=== PATIENT | female | born 1990 | race Caucasian/White ===

== ENCOUNTER → 2021-06-26 | Outpatient (CLI) | payer OTHER | END | disposition home or self-care (01) | LOC: NST 14:30 | PROVIDERS: ATTEND Obstetrics & Gynecology Maternal & Fetal Medicine | DX: Z34.83 Encounter for supervision of other normal pregnancy, third trimester (principal) ==

== ENCOUNTER 2021-07-18 10:58 | Outpatient (CLI) | payer OTHER | END 2021-07-18 11:34 | disposition home or self-care (01) | LOC: NST 10:58 | PROVIDERS: ATTEND Obstetrics & Gynecology Maternal & Fetal Medicine | DX: Z34.83 Encounter for supervision of other normal pregnancy, third trimester (principal) ==

== ENCOUNTER 2021-07-18 12:30 | Inpatient (IN) | payer OTHER ==
[~2021-07-18] VITALS: Ht 157.5 cm; Wt 84.8 kg
[2021-07-20] MEDS ORDERED: PRENATAL TABLE1 EAC1 PO (03:39)
[2021-07-21] MEDS ORDERED: FOLIC ACID1 MG (11:51)
== END 2021-07-22 11:16 | disposition home or self-care (01) | DRG 768 ==
LOC: LDR 07-20 03:34 → OB/GYN 07-20 03:34 → LDR 07-20 09:15 → OB/GYN 07-20 18:17
PROVIDERS: ADMIT Obstetrics & Gynecology; ATTEND Obstetrics & Gynecology
PROC: 10E0XZZ Delivery of Products of Conception, External Approach (ICD-10-PCS; principal; 2021-07-20)
PROC: 0DQR0ZZ Repair Anal Sphincter, Open Approach (ICD-10-PCS; 2021-07-20)
PROC: 0W8NXZZ Division of Female Perineum, External Approach (ICD-10-PCS; 2021-07-20)
PROC: 4A1HXFZ Monitoring of Products of Conception, Cardiac Rhythm, External Approach (ICD-10-PCS; 2021-07-20)
DX: O70.20 Third degree perineal laceration during delivery, unspecified (principal); Z37.0 Single live birth; Z3A.39 39 weeks gestation of pregnancy